=== PATIENT | male | born 1960 | race Caucasian/White ===

== ENCOUNTER 2025-06-18 04:42 | Emergency (ER) | payer MEDICARE, SELFPAY ==
[2025-06-18] VITALS (27 sets, daily range): BP systolic 151–251; BP diastolic 90–151; BMI 24.0
--- NOTE | 2025-06-18 04:58 | ED.GENMED ---
History of Present Illness
<Britt Ross PA-C - Last Filed: 06/18/25 07:49>
General
Chief Complaint: Dizziness
Source: patient
Exam Limitations: none
Time Seen by Provider: 06/18/25 04:44
Nursing documentation reviewed up to this point in time: agreed with
History of Present Illness
History of Present Illness:
65-year-old male with past medical history of hypertension with sudden onset of dizziness watching TV this evening. Patient does not recall exact time the symptoms started. He states that when he got up he reported that the room was spinning and
that he could not see. Patient reportedly states that 'I cannot see, spinning around'. Patient reports that he due to the symptoms, he is unable to walk and he had to crawl around his home. He called his family member who recommended calling EMS.
He denies any headache, neck pain, chest pain, shortness of breath. He denies any numbness or tingling. He denies any one-sided weakness or paresthesias. He denies any confusion. He denies any history of asthma, diabetes, heart failure. He
denies prior history of stroke. He does not take any blood thinners and currently does not take any medications. [place] and reports that since that has been out of his medications and
he reports that he time finding a doctor.
Review of Systems
<Britt Ross PA-C - Last Filed: 06/18/25 07:49>
Review of Systems
All Other Systems: ROS reviewed and negative except as documented in HPI and ROS
Phy Exam
<Britt Ross PA-C - Last Filed: 06/18/25 07:49>
Physical Exam
Physical Exam:
General: Patient is well appearing and in no acute distress; non-toxic
Skin: Warm and dry, no rashes or lesions
Head: Normocephalic, atraumatic
Eyes: Sclera non-icteric. EOMs intact.
Cardiac: Regular rate and rhythm, no murmurs
Peripheral Vascular: No lower extremity swelling or edema
Pulm: Normal respiratory effort, no wheezes, rales, or rhonchi
Abdomen: No abdominal tenderness to palpation
Neuro: NIHSS score of 1--abnormal finger to nose. Normal heel to cal[place]. Otherwise, CN II-XII intact, no drift, normal speech,
Psychiatric: Appropriate mood and affect.
Scores
<Britt Ross PA-C - Last Filed: 06/18/25 07:49>
NIH Stroke Score
Level of Consciousness: 0 - Alert
LOC Questions: 0-Answers both correctly
LOC Commands: 0-Performs both correctly
Best Horizontal Gaze: 0-Normal
Visual Rivas: 0=Normal, no visual loss
Facial Palsy: 0=Normal, symmetrical
Motor - Right Arm: 0=No drift 10 seconds
Motor - Left Arm: 0=No drift 10 seconds
Motor - Right Le-No drift 5 seconds
Motor - Left Le-No drift 5 seconds
Limb Ataxia: 1-Present in one limb
Sensation: 0-Normal
Best Language: 0-No aphasia
Dysarthria: 0-Normal
Extinction and Inattention: 0-No abnormality
NIH Total Score:: 1
<Humberto Huynh DO - Last Filed: 06/18/25 05:40>
NIH Stroke Score
NIH Total Score:: 2
Course
<Britt Ross PA-C - Last Filed: 06/18/25 07:49>
Orders/Labs/Results
Orders:
Orders
06/18/25 04:49
Electrocardiogram (*1) Urgent
Reason for Study: Chest Pain
Cardiac Monitoring- Treatment ONCE
EKG- Treatment ONCE
IV Insert/Care/Rem.- Treatment PRN
O2 Therapy [RESP] Urgent
Titrate/Wean O2 to maintain O2 sat greater than (%): 90
Special Instructions: Maintain sats >/=90%
Pulse Ox/spot Check [RESP] Urgent
Quantity: 1
Special Instructions: ON ROOM AIR
06/18/25 04:51
CT HEAD STROKE ALERT W/o Cont Urgent
Comment:
Reason For Exam: dizziness
06/18/25 04:52
Complete Blood Count/With Diff Urgent
Comprehensive Metabolic Panel Urgent
06/18/25 04:56
Labetalol HCl [Trandate] 10 mg IV NOW STA
Labetalol HCl [Trandate] 20 mg .ROUTE .STK-MED ONE
06/18/25 05:10
Nicardipine 40 mg/200 ml [Cardene] 40 mg in 200 ml IV NOW
Initial dose in mg/hr, then titrate:: 5
Titrate to keep:: Other
Titrate to keep other:: SBP between 150-130
Titrate by mg/hr:: 2.5 mg/hr
Frequency of titrations (minutes):: 5-15 minutes
Maximum dose in mg/hr:: 15
Begin to taper infusion when:: Remained at goal for 2hrs
Taper by mg/hr:: 2.5 mg/hr
Frequency of taper (minutes) if patient maintains goal:: 15-30 minutes
Taper to off?: Yes
If infusion off & no longer maintaining goal:: Contact Provider
06/18/25 05:42
Ondansetron Injectable [Zofran] 4 mg .ROUTE .STK-MED ONE
Ondansetron Injectable [Zofran] 4 mg IV NOW STA
Abnormal Lab Results
06/18/25
04:52
WBC 13.6 H 10^3/uL
(4.8-10.8)
MPV 11.6 H fL
(7.4-10.4)
Abs Immat Gran (auto) 0.1 H 10^3/uL
(0-0.05)
Absolute Neuts (auto) 9.7 H 10^3/uL
(1.4-6.5)
Absolute Monos (auto) 0.7 H 10^3/uL
(0.1-0.6)
Potassium 3.2 L mmol/L
(3.5-5.1)
Glucose 221 H mg/dl
(70-99)
Total Protein 8.3 H g/dl
(6.3-8.2)
Albumin 5.3 H g/dl
(3.5-5.0)
06/18/25 04:52
06/18/25 04:52
Vital Signs
Initial and Last Documented VS:
Initial Vital Signs
BP
251/133
06/18/25 04:45
Last Documented Vital Signs
Temp Pulse Resp BP Pulse Ox
97.5 F 116 27 191/115 93
06/18/25 04:46 06/18/25 06:50 06/18/25 06:00 06/18/25 06:50 06/18/25 06:35
<Humberto Huynh, DO - Last Filed: 06/18/25 05:40>
Orders/Labs/Results
Orders:
Orders
06/18/25 04:49
Electrocardiogram (*1) Urgent
Reason for Study: Chest Pain
Cardiac Monitoring- Treatment ONCE
EKG- Treatment ONCE
IV Insert/Care/Rem.- Treatment PRN
O2 Therapy [RESP] Urgent
Titrate/Wean O2 to maintain O2 sat greater than (%): 90
Special Instructions: Maintain sats >/=90%
Pulse Ox/spot Check [RESP] Urgent
Quantity: 1
Special Instructions: ON ROOM AIR
06/18/25 04:51
CT HEAD STROKE ALERT W/o Cont Urgent
Comment:
Reason For Exam: dizziness
06/18/25 04:52
Complete Blood Count/With Diff Urgent
Comprehensive Metabolic Panel Urgent
06/18/25 04:56
Labetalol HCl [Trandate] 10 mg IV NOW STA
Labetalol HCl [Trandate] 20 mg .ROUTE .STK-MED ONE
06/18/25 05:10
Nicardipine 40 mg/200 ml [Cardene] 40 mg in 200 ml IV NOW
Initial dose in mg/hr, then titrate:: 5
Titrate to keep:: Other
Titrate to keep other:: SBP between 150-130
Titrate by mg/hr:: 2.5 mg/hr
Frequency of titrations (minutes):: 5-15 minutes
Maximum dose in mg/hr:: 15
Begin to taper infusion when:: Remained at goal for 2hrs
Taper by mg/hr:: 2.5 mg/hr
Frequency of taper (minutes) if patient maintains goal:: 15-30 minutes
Taper to off?: Yes
If infusion off & no longer maintaining goal:: Contact Provider
06/18/25 05:42
Ondansetron Injectable [Zofran] 4 mg .ROUTE .STK-MED ONE
Ondansetron Injectable [Zofran] 4 mg IV NOW STA
Abnormal Lab Results
06/18/25
04:52
WBC 13.6 H 10^3/uL
(4.8-10.8)
MPV 11.6 H fL
(7.4-10.4)
Abs Immat Gran (auto) 0.1 H 10^3/uL
(0-0.05)
Absolute Neuts (auto) 9.7 H 10^3/uL
(1.4-6.5)
Absolute Monos (auto) 0.7 H 10^3/uL
(0.1-0.6)
Potassium 3.2 L mmol/L
(3.5-5.1)
Glucose 221 H mg/dl
(70-99)
Total Protein 8.3 H g/dl
(6.3-8.2)
Albumin 5.3 H g/dl
(3.5-5.0)
06/18/25 04:52
06/18/25 04:52
Vital Signs
Initial and Last Documented VS:
Initial Vital Signs
BP
251/133
06/18/25 04:45
Last Documented Vital Signs
Temp Pulse Resp BP Pulse Ox
97.5 F 116 27 191/115 93
06/18/25 04:46 06/18/25 06:50 06/18/25 06:00 06/18/25 06:50 06/18/25 06:35
Artielt;Britt Ross PA-C - Last Filed: 06/18/25 07:49>
MDM/Problems Addressed
Differential Diagnosis Includes:
Differentials include hemorrhagic stroke, ischemic stroke, press syndrome, essential hypertension, BPPV, vestibular neuritis
MDM/Problems Addressed:
65-year-old male with past medical history of hypertension with sudden onset of dizziness watching TV this evening. Patient does not recall exact time the symptoms started. He states that when he got up he reported that the room was spinning and
that he could not see. He currently takes no medications and is on no blood thinners. On my evaluation, patient appears to be uncomfortable secondary to room spinning sensation he does have some abnormal finger-nose testing NIHSS 1. He has no
drift. He has no cranial nerve palsy. Blood pressure 251/133 upon arrival. Patient given dose of labetalol. Stroke alert called. ED attending made aware. CT scan shows cerebellar bleed on the left. Nicardipine drip started. Per [facility] protocol,
because patient's pressure upon arrival was greater than 220, will titrate to maintain BP 180-200 for next 24 hours.
Patient started to develop vomiting. Will give Zofran. Patient maintaining airway.
Patient awaiting for EMS transport, ETA within the hour. Morning ED attending aware of case.
Chronic conditions affecting care:
htn
<Britt Ross PA-C - Last Filed: 06/18/25 07:49>
*Pulse Oximetry
SaO2: 98
Oxygen Mode of Delivery: Room air
Patient hypoxic: no
Data Reviewed
Review of Other/Old Records Reveals: Records (no prior ER records or discharge summaries for review)
Source: patient and records
<Humberto Huynh DO - Last Filed: 06/18/25 05:40>
*Critical Care Note
Total Time (30-74mins, 75-104mins- exclusive of procedures): 33 min
comment:
The high probability of a clinically significant, sudden or life threatening deterioration of the neurovascular system(s) required my full and direct attention, intervention and personal management. The aggregate critical care time was 33 minutes.
This time is in addition to time spent performing reported procedures but includes the following:
[x] Data Review and interpretation
[x] Patient assessment and monitoring of vital signs
[x] Documentation
[x] Medication orders and management
<Britt Ross PA-C - Last Filed: 06/18/25 07:49>
Patient Management
Discussion with other providers: Hospice/Home Health Aide ([facility])
Escalation/DeEscalation of care consider admission/obs:
Transfer indicated
<Britt Ross PA-C - Last Filed: 06/18/25 07:49>
Update Note
Update Note:
5:30 AM based on the current weather, there are no helicopter flights for transport
6:00 AM, latest systolic blood pressure 165 drip shut off
<Humberto Huynh DO - Last Filed: 06/18/25 05:40>
Update Note
Update Note:
5:30 AM based on the current weather, there are no helicopter flights for transport
ED Attending Note
<Britt Ross PA-C - Last Filed: 06/18/25 07:49>
-
Portions of this chart may have been created with voice recognition software.� Occasional wrong word or��sound alike� substitutions may have occurred due to the inherent limitations of voice recognition software.
<Humberto Huynh DO - Last Filed: 06/18/25 05:40>
ED Attending Note
Patient seen and examined by attending physician: Yes
I performed the substantive portion of visit, reviewed & personally made and approve the management plan that is documented in note by myself or NICOLLE.: Yes
ED Attending Note:
I have seen and evaluated the patient with a [id number] encounter. I have spoken to the advance practicer provider and involved in the medical history, the physical exam, medical decision making.
Evaluation and management service: agree unless noted differently below.
Results interpretation: agree unless noted differently below.
Focused HPI: 65-year-old male presenting with sudden onset of dizziness. On arrival, patient found to be profoundly hypertensive. Patient states he has not taken blood pressure medicine in over 6 years
Physical exam: Uncomfortable, nystagmus. Past-pointing with finger-nose
Medical Decision Making: Patient sent to the emergency department immediately with a concern for stroke alert. CT is consistent with a left cerebellar bleed which is likely related to his hypertension emergency. Patient was initially given an IV
dose of labetalol to decrease his blood pressure. Patient was quickly placed on nicardipine drip. I discussed the case with the neurosurgeon at [facility], Dr. Jiménez. He suggested that this is a neurology admission. I spoke to the stroke fellow
Marisabel who accepted the patient. Because the patient was profoundly hypertensive on arrival, Dr. Petit is indicating that his current blood pressure parameter is systolic blood pressure between 180-200 for the next 24 hours
Discharge Plan
Departure
Patient Disposition: Acute Care Hospital
Discharge Problem:
Cerebellar hemorrhage, Hypertensive emergency
Referrals:
UNKNOWN - PT DOES,NOT KNOW [Family Provider]
Hospital Transfer
Other hospital: Dr. Petit
I certify that the patient requires transfer: Yes
Discussed case with accepting physician: Dr. Petit
Reason for transfer: higher level of care
Interventions
Interventions:
*Risk Screen - Suicide Last Done: 06/18/25 04:46
*General Assessment Last Done: 06/18/25 04:46
*Neglect/Abuse Screening Last Done: 06/18/25 04:46
*ED COVID-19 Vaccine History Last Done: 06/18/25 07:12
*ED Influenza Vaccine History Last Done: 06/18/25 07:12
*Nursing Disposition Last Done: 06/18/25 07:12
ED- Neurological Assessment Last Done: 06/18/25 04:57
Discharge Date and Time
Discharge Date/Time: 06/18/25 07:12
Print Language: CENTRAL AFRICAN
[2025-06-18] MEDS: TRANDATE 10 MG IV (05:03)
[2025-06-18] MEDS: CARDENE 200 IV (05:13)
[2025-06-18 05:14] LABS: Hematocrit 44.4 % (39.0-52.0); Hemoglobin 15.7 g/dL (13.0-18.0); Mean Corp Hgb Conc. 35.4 g/dL (33.0-37.0); Mean Corpuscular Volume 87.6 fL (80.0-94.0); Nucleated Red Blood Cells % 0 % (-); Platelet Count 256 10^3/uL (130-400); Red Cell Dist. Width 12.2 % (11.5-14.5)
[2025-06-18 05:38] LABS: ALT (SGPT) 37 U/L (0-50); AST (SGOT) 35 U/L (17-59); Albumin 5.3 g/dl (3.5-5.0); Alkaline Phosphatase 88 U/L (38-126); Blood Urea Nitrogen 16 mg/dl (9-20); Calcium 9.0 mg/dl (8.4-10.2); Carbon Dioxide 22 mmol/L (22-30); Chloride 105 mmol/L (98-107); Estimated Creatinine Clearance 73 ml/min; Glucose 221 mg/dl (70-99); Potassium 3.2 mmol/L (3.5-5.1); Sodium 140 mmol/L (135-145); Total Protein 8.3 g/dl (6.3-8.2); eGFR > 60.00
[2025-06-18] MEDS: ZOFRAN 4 MG IV (05:44)
== END 2025-06-18 07:12 | disposition short-term general hospital (02) ==
LOC: EMR 04:42
PROVIDERS: Physician Assistant; EMERGENCY PHYSICIAN Student in an Organized Health Care Education/Training Program
DX: I61.4 Nontraumatic intracerebral hemorrhage in cerebellum (principal); I16.1 Hypertensive emergency; Z91.148 Patient's other noncompliance with medication regimen for other reason
CPT/HCPCS: 99291; 96365; 96366; 96375; 70450; 80053; 85025; 93005